=== PATIENT | female | born 1985 | race Caucasian/White ===

== ENCOUNTER 2018-12-29 19:52 | Emergency (ER) | payer OTHER, SELFPAY ==
[~2018-12-29] VITALS: Ht 162.6 cm; Wt 50.6 kg
[2018-12-29 19:57] VITALS: BP 122/81
--- NOTE | 2018-12-29 20:26 | NUR ---
PT. TO ED WITH C/O RIGHT SIDE THROAT PAIN STARTING YESTERDAY. WAS SEEN AT CLINIC AND SENT HERE TO EVAL FOR PERITONILLAR ABSCESS. DR. MORIN AT BS TO EVAL PT. AND ARTEM TREVINO AT BS. CALL LIGHT IN REACH.
--- NOTE | 2018-12-29 20:51 | NUR ---
PT. RESTING IN CHAIR IN ENT ROOM PRIMO BURTON. AWAITNG D/C PAPERS. PT. DENIES NEEDS IN THE MEANTIME.
== END 2018-12-29 21:02 | disposition home or self-care (01) ==
LOC: ED 20:54
DX: K11.5 Sialolithiasis (principal); Z88.1 Allergy status to other antibiotic agents
CPT/HCPCS: 99283

== ENCOUNTER 2019-12-16 12:43 | Emergency (ER) | payer BC, OTHER ==
[~2019-12-16] VITALS: Ht 162.6 cm; Wt 53.0 kg
[2019-12-16 12:50] VITALS: BP 113/66
[2019-12-16] MEDS ORDERED: PROPOFOL 100 ML IV ONE (13:13)
--- NOTE | 2019-12-16 13:33 | NUR ---
TO RM FORM LOBBY
--- NOTE | 2019-12-16 13:35 | NUR ---
PT AMBULATES FROM LOBBY TO ROOM WITH STEADY GAIT. PT CHANGED INTO GOWN. CALL LIGHT WITHIN REACH. PT EDUCATED ON ER PROCESS AND POC AND VERBALIZES UNDERSTANDING.
--- NOTE | 2019-12-16 15:12 | NUR ---
PT D/C WITH D/C SUMMARY AND SCRIPTS. ALL QUESTIONS ANSWERED. PT AMBULATES TO REGITRATION DESK WITH STEADY GAIT FOR D/C HOME AND DENIES ANY OTHER NEEDS PERTAINING TO THIS VISIT.
== END 2019-12-16 15:15 | disposition home or self-care (01) ==
LOC: ED 14:50
DX: J35.8 Other chronic diseases of tonsils and adenoids (principal); R50.9 Fever, unspecified
CPT/HCPCS: 99283